=== PATIENT | male | born 1950 | race Caucasian/White ===

== ENCOUNTER → 2016-09-28 | Outpatient (REF) | payer MEDICARE, OTHER ==
[2016-09-28 15:46] LABS: BLOOD UREA NITROGEN 14 MG/DL (7-18); CREATININE FOR GFR 0.84 MG/DL (0.70-1.30); GLOMERULAR FILTRATION RATE > 60.0 (>49)
== END ==
LOC: M LABDRAW1 14:05
PROVIDERS: ATTEND Internal Medicine Pulmonary Disease
DX: R91.8 Other nonspecific abnormal finding of lung field (principal)

== ENCOUNTER → 2016-10-17 | Outpatient (REF) | payer MEDICARE, OTHER ==
[2016-10-17 13:25] LABS: BLOOD UREA NITROGEN 19 MG/DL (7-18); CREATININE FOR GFR 0.97 MG/DL (0.70-1.30); GLOMERULAR FILTRATION RATE > 60.0 (>49)
== END ==
LOC: M LABDRAW1 13:01
PROVIDERS: ATTEND Orthopaedic Surgery
DX: M51.36 Other intervertebral disc degeneration, lumbar region (principal)

== ENCOUNTER → 2016-10-30 | Outpatient (REF) | payer MEDICARE, OTHER ==
[2016-10-30 19:05] LABS: BASO % 0.5 % (0.0-1.0); EOS # 0.4 K/mm3 (0.0-0.50); EOS % 3.8 % (0.0-3.0); LARGE UNSTAINED CELL # 0.2 K/mm3 (0.0-0.4); LARGE UNSTAINED CELL % 1.7 % (0.0-4.0); LYMPH # 2.7 K/mm3 (1.5-4.5); LYMPH % 26.7 % (24.0-44.0); MEAN CORPUSCULAR HEMOGLOBIN 33.7 pg (27.0-33.0); MEAN CORPUSCULAR HGB CONC 33.7 g/dl (32.0-36.5); MEAN CORPUSCULAR VOLUME 100.2 fl (80.0-96.0); MONO # 0.5 K/mm3 (0.0-0.8); MONO % 5.6 % (0.0-5.0); NEUTROPHILS # 5.9 K/mm3 (1.8-7.7); NEUTROPHILS % 61.7 % (36.0-66.0); PLATELET COUNT, AUTOMATED 379 k/mm3 (150-450); RED CELL DISTRIBUTION WIDTH 12.5 % (11.5-14.5); WHITE BLOOD COUNT 9.5 K/mm3 (4.0-10.0)
[2016-10-30 19:49] LABS: ERYTHROCYTE SEDIMENTATION RATE 16 mm/hr (0-20)
== END ==
LOC: M LABDRAW1 17:50
PROVIDERS: ATTEND Orthopaedic Surgery
DX: M51.26 Other intervertebral disc displacement, lumbar region (principal)

== ENCOUNTER → 2016-11-16 | Outpatient (CLI) | payer MEDICARE, BC, OTHER ==
--- NOTE | 2016-11-16 11:03 | REP ---
CT of the right hip: Axial images are acquired with helical scanning in the reformatted sagittal and coronal projections. Study is correlated with the MRI dated 10/25/2016. There are small calcifications at the insertions side of the gluteus medius and gluteus minimus tendon to the greater trochanter. This could represent a small avulsion. There are no lytic, blastic or destructive skeletal changes. No mass. Mineralization is normal. No fracture is identified. The femoral acetabular joint is unremarkable. Impression: Tiny calcifications at the insertion of the gluteus medius evidence minimus tendons some to the greater trochanter, possibly small a avulsion. Signed by Claudio Kasper MD 11/16/2016 10:54 A
--- NOTE | 2016-11-16 15:13 | REP ---
WHOLE BODY RADIONUCLIDE BONE SCAN: HISTORY: Lumbar disc displacement. The patient reports right hip pain progressively worsening TECHNIQUE: 20.1 mCi technetium 99m MDP is injected and standard whole body bone scan imaging is acquired. SCINTIGRAPHIC FINDINGS: There is uptake in bilateral kidneys and in the urinary bladder. There is a large photopenic area associated with defect in the superolateral aspect of the left kidney consistent with a left renal cyst. This is visualized on recent CT study of the chest from October 04, 2016. There is a vague soft tissue uptake in the right chest. This does not correlate with the recent chest CT since there was no evidence of infiltrate. There is osteoarthritic facet uptake at the L5-S1 bilaterally and on the left side of the lower cervical spine. There are arthritic uptake changes in the acromioclavicular joints bilaterally and in the medial compartment of each knee as well as in the right midfoot. There is a focus of increased uptake at the greater trochanter of the right proximal femur consistent with calcific tendonitis or bursitis. No other abnormal skeletal uptake is seen. IMPRESSION: 1. Focal uptake at the greater trochanter on the right consistent with tendonitis or bursitis. 2. Arthritic uptake in multiple sites. 3. Large photopenic area left kidney consistent with a cyst seen on recent CT. 4. Asymmetric soft tissue uptake in the right lung of uncertain significance. Correlation with chest x-ray suggested. Signed by Segundo Max MD 11/16/2016 05:01 P
== END ==
LOC: M RAD 09:46
PROVIDERS: ATTEND Orthopaedic Surgery
DX: R93.7 Abnormal findings on diagnostic imaging of other parts of musculoskeletal system (principal); R93.422 Abnormal radiologic findings on diagnostic imaging of left kidney; R91.8 Other nonspecific abnormal finding of lung field; M16.11 Unilateral primary osteoarthritis, right hip; M51.26 Other intervertebral disc displacement, lumbar region; Z85.828 Personal history of other malignant neoplasm of skin
CPT/HCPCS: 73700; 78306; A9503

== ENCOUNTER → 2020-02-03 | Outpatient (CLI) | payer MEDICARE, BC ==
--- NOTE | 2020-02-04 06:50 | REP ---
REASON: Assess for abdominal aortic aneurysm. Multiple ultrasonographic images of the abdominal aort were obtained from the level of the celiac axis to the aortoiliac bifurcation in both longitudinal and transverse scan planes. The maximal AP dimension of the abdominal aorta, as measured in the longitudinal scan plane, is 2.8 cm. There is no aneurysmal dilatation. There is no abnormal common iliac arteria ectasia. IMPRESSION: The examination is within normal limits.
== END ==
LOC: M PLAIMG 08:31
PROVIDERS: ATTEND Family Medicine
DX: Z72.0 Tobacco use (principal)

== ENCOUNTER → 2020-02-25 | Outpatient (CLI) | payer MEDICARE, BC, OTHER | LOC: M RAD 11:00 | PROVIDERS: ATTEND Family Medicine | DX: R91.1 Solitary pulmonary nodule (principal); J91.8 Pleural effusion in other conditions classified elsewhere; F17.210 Nicotine dependence, cigarettes, uncomplicated ==

== ENCOUNTER → 2021-07-18 | Outpatient (CLI) | payer MEDICARE, BC, OTHER ==
--- NOTE | 2021-07-18 12:20 | REP ---
INDICATION: COUGH,WHEEZING, TABACCO USE COMPARISON: 05/25/2005 TECHNIQUE: PA and lateral. FINDINGS: Cardiomegaly and evidence for prior sternotomy and CABG. Lung pond demonstrate increased interstitial and pulmonary vascular markings and possible small pleural reactions.. No discrete focal consolidation. No pneumothorax. Skeletal structures intact. IMPRESSION: 1. Differential diagnosis includes chronic changes as well as pulmonary vascular congestion/interstitial edema. Correlation is required. <Electronically signed by Grant Anne > 07/18/21 [id number]
== END ==
LOC: M WUC 12:00
PROVIDERS: ATTEND Family Medicine
DX: R05.1 Acute cough (principal); R06.2 Wheezing; Z72.0 Tobacco use; I51.7 Cardiomegaly; J84.9 Interstitial pulmonary disease, unspecified

== ENCOUNTER → 2022-02-15 | Outpatient (CLI) | payer MEDICARE, BC, OTHER | LOC: M WUC 15:16 | PROVIDERS: ATTEND Family Medicine | DX: M25.552 Pain in left hip (principal); M54.42 Lumbago with sciatica, left side; M25.78 Osteophyte, vertebrae; M51.36 Other intervertebral disc degeneration, lumbar region ==

== ENCOUNTER 2022-02-25 00:44 | Inpatient (IN) | payer MEDICARE, BC, OTHER ==
[2022-02-25] VITALS (19 sets, daily range): BP systolic 113–158; BP diastolic 51–118; O2SAT 96
[~2022-02-25] VITALS: Ht 167.6 cm; Wt 94.9 kg
[2022-02-25 01:44] LABS: HEMATOCRIT 39.9 % (42.0-52.0); HEMOGLOBIN 12.6 g/dl (13.5-17.5); MEAN CORPUSCULAR HEMOGLOBIN 30.3 pg (27.0-33.0); MEAN CORPUSCULAR HGB CONC 31.6 g/dl (32.0-36.5); MEAN CORPUSCULAR VOLUME 95.9 fl (80.0-96.0); PLATELET COUNT, AUTOMATED 341 10^3/uL (150-450); RED BLOOD COUNT 4.16 10^6/uL (4.30-6.10); WHITE BLOOD COUNT 16.2 10^3/uL (4.0-10.0)
[2022-02-25] MEDS ORDERED: ISOVUE-370 76% 100ML VIAL As Ordered ONE (01:51)
[2022-02-25 01:55] LABS: INR 1.06; PROTHROMBIN TIME 14.2 SECONDS (12.7-14.5)
[2022-02-25 01:56] LABS: PARTIAL THROMBOPLASTIN TIME 29.5 SECONDS (25.9-37.0)
[2022-02-25] MEDS ORDERED: VALS1TAB68 PO (02:44)
[2022-02-25] MEDS ORDERED: METO1TAB7 PO (02:44)
[2022-02-25] MEDS ORDERED: LIPI80TA PO (02:44)
[2022-02-25] MEDS ORDERED: NITR4TASL SL (02:45)
[2022-02-25] MEDS ORDERED: ASPI81CH33 PO (02:46)
[2022-02-25] MEDS ORDERED: OMEP40CA4 PO (02:46)
[2022-02-25] MEDS ORDERED: K-TA10TA2 PO (02:47)
[2022-02-25] MEDS ORDERED: ZETI10TA16 PO (02:47)
[2022-02-25] MEDS ORDERED: MAGN64TASA PO (02:48)
[2022-02-25] MEDS ORDERED: ISOS1TAB36 PO (02:50)
[2022-02-25] MEDS ORDERED: HEPARIN DRIP 25,000 UNITS in IV 1 EA IV SCH (04:00)
[2022-02-25] MEDS ORDERED: HEPARIN SOD (PORCINE) 5000UNITS/ML 1ML VIAL/SYRINGE IV PRN ×2 (04:00→06:10)
[2022-02-25] MEDS ORDERED: ALBUTEROL 90 MCG/ACT 8GM HFA INHALER INH PRN (05:05)
[2022-02-25] MEDS ORDERED: NS 1,000 ML IV SCH (05:05)
[2022-02-25] MEDS ORDERED: ZOLO100T PO (05:19)
[2022-02-25] MEDS ORDERED: PRED25TA PO (05:19)
[2022-02-25] MEDS ORDERED: B-12100010 PO (05:19)
[2022-02-25] MEDS ORDERED: FURO40TA2 PO (05:19)
[2022-02-25] MEDS ORDERED: TREL1AER PO (05:19)
[2022-02-25] MEDS ORDERED: ALB2.5NEB INH (05:19)
[2022-02-25] MEDS ORDERED: HOME MED LIST COMPLETE! XX SCH (05:20)
[2022-02-25 06:09] LABS: ALBUMIN 2.7 GM/DL (3.2-5.2); BILIRUBIN,TOTAL 0.5 MG/DL (0.2-1.0); CALCIUM LEVEL 7.4 MG/DL (8.8-10.2); CREATININE FOR GFR 1.34 MG/DL (0.70-1.30); GLOMERULAR FILTRATION RATE 55.6 (>42); MAGNESIUM LEVEL 1.2 MG/DL (1.8-2.4); POTASSIUM SERUM 2.8 MEQ/L (3.5-5.1); TOTAL PROTEIN 5.9 GM/DL (6.4-8.2)
[2022-02-25] MEDS ORDERED: propofoL 200 MG/20 ML VIAL As Ordered ONE (06:09)
[2022-02-25] MEDS ORDERED: LIDOCAINE 2% 100MG/5ML SDV (FOR ANES.) As Ordered ONE (06:09)
[2022-02-25] MEDS ORDERED: dexameTHASONE 4 MG/ML 1ML VIAL (J1100 PER 1MG) As Ordered ONE (06:10)
[2022-02-25] MEDS ORDERED: ONDANSETRON 4MG 2ML VIAL As Ordered ONE (06:10)
[2022-02-25] MEDS ORDERED: HEPARIN SOD (PORCINE) 5000UNITS/ML 1ML VIAL/SYRINGE As Ordered ONE ×2 (06:10→08:01)
[2022-02-25] MEDS ORDERED: LIDOCAINE 2% MDV 20ML VIAL As Ordered ONE (06:10)
[2022-02-25] MEDS ORDERED: fentaNYL 100 MCG/2 ML INJECTION As Ordered ONE ×2 (06:10→08:39)
[2022-02-25] MEDS ORDERED: BUPIVACAINE HCL 0.5% 30ML VIAL As Ordered ONE (06:11)
[2022-02-25] MEDS ORDERED: MAGNESIUM SULFATE IN WATER 2 GM in IV 1 EA IV STA ×4 (06:18→13:33)
[2022-02-25] MEDS: KCL 10MEQ/100ML SWI (KRUN) 10 MEQ in IV 1 EA IV SCH ×3 (06:30→14:50)
[2022-02-25] MEDS ORDERED: ETOMIDATE INJ 20MG/10ML VIAL As Ordered ONE (06:44)
[2022-02-25] MEDS ORDERED: ROCURONIUM BROMIDE 50 MG/5 ML VIAL As Ordered ONE ×2 (06:44→08:24)
[2022-02-25] MEDS ORDERED: ISOVUE-300 61% 50ML VIAL As Ordered ONE (06:54)
[2022-02-25] MEDS ORDERED: VASOPRESSIN INJ 20 UNITS/ML VIAL As Ordered ONE (07:30)
[2022-02-25] MEDS ORDERED: ceFAZolin 1GM VIAL (J0690 PER 500MG) As Ordered ONE ×2 (07:49→11:38)
[2022-02-25] MEDS ORDERED: PHENYLEPHRINE 10MG/ML 1ML VIAL (J2370 PER 1) As Ordered ONE (08:12)
[2022-02-25] MEDS ORDERED: NICOTINE 21MG/24HR 1 EA TRANSDERMAL TD SCH (09:00)
[2022-02-25] MEDS ORDERED: THROMBIN SOLN 20,000 UNITS KIT As Ordered ONE (10:51)
[2022-02-25] MEDS ORDERED: SUGAMMADEX SODIUM 500 MG/5 ML VIAL (BRIDION) As Ordered ONE (11:16)
[2022-02-25] MEDS ORDERED: ACETAMINOPHEN 1000MG 100ML IV BTL (OFIRMEV) (J0131 PER 10MG) As Ordered ONE (11:16)
[2022-02-25] MEDS ORDERED: MORPHINE 2 MG/ML 1ML VIAL IV PRN ×2 (12:10→13:30)
[2022-02-25 12:41] LABS: HEMATOCRIT 33.8 % (42.0-52.0); MEAN CORPUSCULAR HEMOGLOBIN 30.5 pg (27.0-33.0); MEAN CORPUSCULAR HGB CONC 32.5 g/dl (32.0-36.5); MEAN CORPUSCULAR VOLUME 93.6 fl (80.0-96.0); PLATELET COUNT, AUTOMATED 308 10^3/uL (150-450); RED BLOOD COUNT 3.61 10^6/uL (4.30-6.10); WHITE BLOOD COUNT 13.4 10^3/uL (4.0-10.0)
[2022-02-25 12:58] LABS: INR 1.18; PROTHROMBIN TIME 15.5 SECONDS (12.7-14.5)
[2022-02-25 12:59] LABS: CALCIUM LEVEL 6.7 MG/DL (8.8-10.2); CREATININE FOR GFR 1.28 MG/DL (0.70-1.30); GLOMERULAR FILTRATION RATE 58.6 (>42); MAGNESIUM LEVEL 1.3 MG/DL (1.8-2.4); POTASSIUM SERUM 3.4 MEQ/L (3.5-5.1)
[2022-02-25] MEDS ORDERED: ONDANSETRON 4MG 2ML VIAL IV PRN (13:30)
[2022-02-25] MEDS ORDERED: LR 1,000 ML IV SCH (13:30)
[2022-02-25] MEDS ORDERED: fentaNYL 100 MCG/2 ML INJECTION IV PRN (13:30)
[2022-02-25] MEDS ORDERED: oxyCODONE 5MG TAB PO PRN (13:30)
[2022-02-25] MEDS ORDERED: IPRATROPIUM 0.5MG/ALBUTEROL 2.5MG INH SOL UD 3ML (DUONEB) NEB SCH (14:00)
[2022-02-25] MEDS ORDERED: CALCIUM GLUCONATE 1,000 MG in D5W MINI-BAG PLUS 100 ML IV ONE (14:00)
[2022-02-25] MEDS: MAG SULF 1GM/100ML (MAG RUN) 1 GM in IV 1 EA IV SCH ×2 (14:18→15:23)
[2022-02-25] MEDS: methylPREDNISolone 125MG 2ML VIAL IV SCH ×2 (14:19→21:28)
[2022-02-25] MEDS: PANTOPRAZOLE 40MG TAB (PROTONIX) PO SCH (14:27)
[2022-02-25] MEDS: PERCOCET 5MG/325MG TAB PO PRN (14:29)
[2022-02-25] MEDS: NICOTINE 21MG/24HR 1 EA TRANSDERMAL TD SCH (14:30)
[2022-02-25] MEDS: IPRATROPIUM 0.5MG/ALBUTEROL 2.5MG INH SOL UD 3ML (DUONEB) NEB SCH ×3 (14:46→18:54)
[2022-02-25] MEDS: HEPARIN DRIP 25,000 UNITS in IV 1 EA IV SCH (15:45)
[2022-02-25] MEDS: ceFAZolin SOD 1 GM in D5W MINI-BAG PLUS 50 ML IV SCH (20:00)
[2022-02-25 22:23] LABS: CALCIUM LEVEL 7.4 MG/DL (8.8-10.2); CREATININE FOR GFR 1.37 MG/DL (0.70-1.30); GLOMERULAR FILTRATION RATE 54.2 (>42); MAGNESIUM LEVEL 1.9 MG/DL (1.8-2.4); PHOSPHORUS LEVEL 3.6 MG/DL (2.5-4.9); POTASSIUM SERUM 3.8 MEQ/L (3.5-5.1)
[2022-02-25] MEDS ORDERED: DEXTROSE 50% 50 ML SYRINGE IV PRN (22:55)
[2022-02-25] MEDS ORDERED: GLUCOSE 4GM CHEW TABLET PO PRN (22:55)
[2022-02-25] MEDS ORDERED: GLUCAGON INJ 1MG VIAL SC PRN (22:55)
[2022-02-26] VITALS (31 sets, daily range): BP systolic 87–169; BP diastolic 46–70; O2SAT 94–97
[2022-02-26] MEDS: IPRATROPIUM 0.5MG/ALBUTEROL 2.5MG INH SOL UD 3ML (DUONEB) NEB SCH ×4 (02:31→19:46)
[2022-02-26] MEDS: methylPREDNISolone 125MG 2ML VIAL IV SCH ×4 (02:39→20:12)
[2022-02-26] MEDS: ceFAZolin SOD 1 GM in D5W MINI-BAG PLUS 50 ML IV SCH ×2 (04:40→12:25)
[2022-02-26 07:46] LABS: ALBUMIN 2.7 GM/DL (3.2-5.2); ALT/SGPT 12 U/L (12-78); BILIRUBIN,TOTAL 0.4 MG/DL (0.2-1.0); BLOOD UREA NITROGEN 14 MG/DL (7-18); CALCIUM LEVEL 7.1 MG/DL (8.8-10.2); CARBON DIOXIDE LEVEL 24 MEQ/L (21-32); CHLORIDE LEVEL 105 MEQ/L (98-107); CREATININE FOR GFR 1.16 MG/DL (0.70-1.30); GLOMERULAR FILTRATION RATE > 60.0 (>42); GLUCOSE, FASTING 194 MG/DL (70-100); MAGNESIUM LEVEL 1.9 MG/DL (1.8-2.4); POTASSIUM SERUM 3.7 MEQ/L (3.5-5.1); SODIUM LEVEL 138 MEQ/L (136-145); TOTAL PROTEIN 5.6 GM/DL (6.4-8.2)
[2022-02-26] MEDS: NICOTINE 21MG/24HR 1 EA TRANSDERMAL TD SCH (08:16)
[2022-02-26] MEDS: PANTOPRAZOLE 40MG TAB (PROTONIX) PO SCH (08:16)
[2022-02-26] MEDS: ASPIRIN 81MG ENTERIC TABLET PO SCH (08:16)
[2022-02-26] MEDS: INSULIN LISPRO (NovoLOG) PER UNIT SC SCH ×3 (08:17→18:15)
[2022-02-26 12:11] LABS: HEMATOCRIT 32.2 % (42.0-52.0); MEAN CORPUSCULAR HEMOGLOBIN 29.9 pg (27.0-33.0); MEAN CORPUSCULAR HGB CONC 31.1 g/dl (32.0-36.5); MEAN CORPUSCULAR VOLUME 96.4 fl (80.0-96.0); PLATELET COUNT, AUTOMATED 236 10^3/uL (150-450); RED BLOOD COUNT 3.34 10^6/uL (4.30-6.10); WHITE BLOOD COUNT 15.5 10^3/uL (4.0-10.0)
[2022-02-26] MEDS: HEPARIN DRIP 25,000 UNITS in IV 1 EA IV SCH (12:36)
[2022-02-26] MEDS ORDERED: FUROSEMIDE 20MG/2ML VIAL (J1940) IV ONE ×2 (12:50→18:05)
[2022-02-26] MEDS ORDERED: INSULIN LISPRO (NovoLOG) PER UNIT SC SCH (21:00)
[2022-02-27] VITALS (16 sets, daily range): BP systolic 121–151; BP diastolic 60–71; O2SAT 98–99
[2022-02-27] MEDS: IPRATROPIUM 0.5MG/ALBUTEROL 2.5MG INH SOL UD 3ML (DUONEB) NEB SCH ×3 (02:03→13:05)
[2022-02-27] MEDS: methylPREDNISolone 125MG 2ML VIAL IV SCH ×3 (03:22→15:34)
[2022-02-27 06:42] LABS: BLOOD UREA NITROGEN 21 MG/DL (7-18); CALCIUM LEVEL 7.4 MG/DL (8.8-10.2); CARBON DIOXIDE LEVEL 26 MEQ/L (21-32); CHLORIDE LEVEL 105 MEQ/L (98-107); GLOMERULAR FILTRATION RATE > 60.0 (>42); GLUCOSE, FASTING 177 MG/DL (70-100); MAGNESIUM LEVEL 1.8 MG/DL (1.8-2.4); POTASSIUM SERUM 3.8 MEQ/L (3.5-5.1); SODIUM LEVEL 139 MEQ/L (136-145)
[2022-02-27 07:51] LABS: BASO % 0.1 % (0.0-1.0); HEMATOCRIT 31.6 % (42.0-52.0); HEMOGLOBIN 9.8 g/dl (13.5-17.5); LYMPH # 0.5 10^3/uL (1.5-5.0); LYMPH % 2.6 % (24.0-44.0); MEAN CORPUSCULAR HEMOGLOBIN 30.2 pg (27.0-33.0); MEAN CORPUSCULAR VOLUME 97.2 fl (80.0-96.0); MONO # 0.6 10^3/uL (0.0-0.8); MONO % 3.2 % (2.0-8.0); NEUTROPHILS # 17.2 10^3/uL (1.5-8.5); NEUTROPHILS % 93.4 % (36.0-66.0); PLATELET COUNT, AUTOMATED 235 10^3/uL (150-450); RED BLOOD COUNT 3.25 10^6/uL (4.30-6.10); WHITE BLOOD COUNT 18.4 10^3/uL (4.0-10.0)
[2022-02-27] MEDS ORDERED: MAG SULF 1GM/100ML (MAG RUN) 1 GM in IV 1 EA IV ONE (08:00)
[2022-02-27] MEDS: PANTOPRAZOLE 40MG TAB (PROTONIX) PO SCH (08:21)
[2022-02-27] MEDS: NICOTINE 21MG/24HR 1 EA TRANSDERMAL TD SCH (08:21)
[2022-02-27] MEDS: INSULIN LISPRO (NovoLOG) PER UNIT SC SCH ×3 (08:21→18:07)
[2022-02-27] MEDS: ASPIRIN 81MG ENTERIC TABLET PO SCH (08:21)
[2022-02-27] MEDS: PERCOCET 5MG/325MG TAB PO PRN ×2 (08:31→18:07)
[2022-02-27] MEDS: HEPARIN DRIP 25,000 UNITS in IV 1 EA IV SCH (13:34)
[2022-02-27] MEDS ORDERED: PRED10TA2 PO (17:05)
[2022-02-27] MEDS ORDERED: HEPA1INJ81 IV (17:05)
== END 2022-02-27 18:54 | disposition short-term general hospital (02) | DRG 270 ==
LOC: M ED 00:44 → EDBD 00:44 → M ED INP 06:14 → M ED 06:49 → ENRESERV 09:06 → M ICU 12:58
PROVIDERS: ADMIT Internal Medicine; ATTEND Internal Medicine
PROC: 04CL0ZZ Extirpation of Matter from Left Femoral Artery, Open Approach (ICD-10-PCS; 2022-02-25)
PROC: 04UL0KZ Supplement Left Femoral Artery with Nonautologous Tissue Substitute, Open Approach (ICD-10-PCS; 2022-02-25)
PROC: 047D0DZ Dilation of Left Common Iliac Artery with Intraluminal Device, Open Approach (ICD-10-PCS; 2022-02-25)
PROC: 04CD0ZZ Extirpation of Matter from Left Common Iliac Artery, Open Approach (ICD-10-PCS; principal; 2022-02-25 05:09)
PROC: B246ZZZ Ultrasonography of Right and Left Heart (ICD-10-PCS; 2022-02-26)
DX: I74.5 Embolism and thrombosis of iliac artery (principal); J96.21 Acute and chronic respiratory failure with hypoxia; I21.4 Non-ST elevation (NSTEMI) myocardial infarction; J44.1 Chronic obstructive pulmonary disease with (acute) exacerbation; F17.210 Nicotine dependence, cigarettes, uncomplicated; I25.10 Atherosclerotic heart disease of native coronary artery without angina pectoris; Z95.5 Presence of coronary angioplasty implant and graft; I48.91 Unspecified atrial fibrillation; E78.5 Hyperlipidemia, unspecified; I10 Essential (primary) hypertension; Z20.822 Contact with and (suspected) exposure to COVID-19; Z79.82 Long term (current) use of aspirin; Z79.899 Other long term (current) drug therapy; I77.1 Stricture of artery; G89.29 Other chronic pain; I70.222 Atherosclerosis of native arteries of extremities with rest pain, left leg; E87.6 Hypokalemia; E83.42 Hypomagnesemia; K21.9 Gastro-esophageal reflux disease without esophagitis; Z99.81 Dependence on supplemental oxygen; M47.817 Spondylosis without myelopathy or radiculopathy, lumbosacral region

== ENCOUNTER → 2022-04-09 | Outpatient (CLI) | payer MEDICARE, BC, OTHER ==
[~2022-04-09] MED LIST: ALB2.5NEB INH; ASPI81CH33 PO; B-12100010 PO; FURO40TA2 PO; HEPA1INJ81 IV; ISOS1TAB36 PO; K-TA10TA2 PO; LIPI80TA PO; MAGN64TASA PO; METO1TAB7 PO; NITR4TASL SL; OMEP40CA4 PO; PRED10TA2 PO; PRED25TA PO; TREL1AER PO; VALS1TAB68 PO; ZETI10TA16 PO; ZOLO100T PO
== END ==
LOC: M RAD 10:06
PROVIDERS: ATTEND Family Medicine
DX: R91.8 Other nonspecific abnormal finding of lung field (principal); Z72.0 Tobacco use; J44.1 Chronic obstructive pulmonary disease with (acute) exacerbation

== ENCOUNTER → 2022-05-21 | Outpatient (CLI) | payer MEDICARE, BC, OTHER ==
[2022-05-21 15:58] LABS: HEMOGLOBIN 9.5 g/dl (13.5-17.5); MEAN CORPUSCULAR HEMOGLOBIN 25.3 pg (27.0-33.0); MEAN CORPUSCULAR HGB CONC 29.7 g/dl (32.0-36.5); MEAN CORPUSCULAR VOLUME 85.3 fl (80.0-96.0); PLATELET COUNT, AUTOMATED 384 10^3/uL (150-450); RED BLOOD COUNT 3.75 10^6/uL (4.30-6.10); WHITE BLOOD COUNT 10.5 10^3/uL (4.0-10.0)
[2022-05-21 16:34] LABS: CALCIUM LEVEL 8.5 MG/DL (8.8-10.2); CREATININE FOR GFR 1.54 MG/DL (0.70-1.30); GLOMERULAR FILTRATION RATE 47.4 (>42); MAGNESIUM LEVEL 1.5 MG/DL (1.8-2.4)
== END ==
LOC: M PLALAB 13:25
PROVIDERS: ATTEND Physician Assistant
DX: I50.32 Chronic diastolic (congestive) heart failure (principal); I48.0 Paroxysmal atrial fibrillation

== ENCOUNTER → 2022-05-30 | Outpatient (CLI) | payer MEDICARE, BC, OTHER ==
[2022-05-30 16:30] LABS: CALCIUM LEVEL 8.8 MG/DL (8.8-10.2); CREATININE FOR GFR 1.52 MG/DL (0.70-1.30); GLOMERULAR FILTRATION RATE 48.1 (>42); MAGNESIUM LEVEL 1.7 MG/DL (1.8-2.4)
== END ==
LOC: M PLALAB 14:01
PROVIDERS: ATTEND Physician Assistant
DX: I50.32 Chronic diastolic (congestive) heart failure (principal); I48.0 Paroxysmal atrial fibrillation

== ENCOUNTER → 2022-06-18 | Outpatient (CLI) | payer MEDICARE, BC, OTHER ==
[2022-06-18 13:45] LABS: CALCIUM LEVEL 8.1 MG/DL (8.3-10.6); CREATININE FOR GFR 1.6 MG/DL (0.70-1.30); GLOMERULAR FILTRATION RATE 45.3 (>42); POTASSIUM SERUM 5.9 MMOL/L (3.5-5.1)
== END ==
LOC: M PLALAB 11:34
PROVIDERS: ATTEND Family Medicine
DX: E78.5 Hyperlipidemia, unspecified (principal); I10 Essential (primary) hypertension; I73.9 Peripheral vascular disease, unspecified

== ENCOUNTER → 2022-07-06 | Outpatient (CLI) | payer MEDICARE, BC, OTHER ==
[2022-07-06 16:09] LABS: MAGNESIUM LEVEL 1.2 MG/DL (1.8-2.4)
[2022-07-06 16:10] LABS: BLOOD UREA NITROGEN 17 MG/DL (9-23); CALCIUM LEVEL 8.5 MG/DL (8.3-10.6); CARBON DIOXIDE LEVEL 23 MMOL/L (20-31); CHLORIDE LEVEL 108 MMOL/L (98-107); GLOMERULAR FILTRATION RATE > 60.0 (>42); GLUCOSE, FASTING 101 MG/DL (74-106); POTASSIUM SERUM 3.8 MMOL/L (3.5-5.1); SODIUM LEVEL 138 MMOL/L (136-145)
== END ==
LOC: M PLALAB 13:48
PROVIDERS: ATTEND Physician Assistant
DX: I50.32 Chronic diastolic (congestive) heart failure (principal); I48.0 Paroxysmal atrial fibrillation

== ENCOUNTER → 2022-08-06 | Outpatient (CLI) | payer MEDICARE, BC, OTHER ==
[2022-08-06 15:28] LABS: MAGNESIUM LEVEL 1.2 MG/DL (1.8-2.4)
[2022-08-06 15:30] LABS: BLOOD UREA NITROGEN 19 MG/DL (9-23); CALCIUM LEVEL 7.8 MG/DL (8.3-10.6); CARBON DIOXIDE LEVEL 20 MMOL/L (20-31); CHLORIDE LEVEL 105 MMOL/L (98-107); CREATININE FOR GFR 1.24 MG/DL (0.70-1.30); GLOMERULAR FILTRATION RATE > 60.0 (>42); GLUCOSE, FASTING 85 MG/DL (74-106); SODIUM LEVEL 133 MMOL/L (136-145)
== END ==
LOC: M PLALAB 11:23
PROVIDERS: ATTEND Physician Assistant
DX: I50.32 Chronic diastolic (congestive) heart failure (principal); I48.0 Paroxysmal atrial fibrillation

== ENCOUNTER → 2022-09-17 | Outpatient (CLI) | payer MEDICARE, BC, OTHER ==
[~2022-09-17] MED LIST changes: +ALBU6.7H6 INH; +ELIQ5TAB PO; +IRON65TA2 PO; +MAGN400T35 PO; +NICO1DIS12 TOP; +SENN-145 PO; +SPIR-10 PO; +TORS20TA2 PO
[2022-09-17 16:08] LABS: ALBUMIN 3.3 G/DL (3.2-5.2); CALCIUM LEVEL 8.6 MG/DL (8.3-10.6); CREATININE FOR GFR 1.58 MG/DL (0.70-1.30); GLOMERULAR FILTRATION RATE 45.9 (>42); MAGNESIUM LEVEL 1.6 MG/DL (1.8-2.4); PHOSPHORUS LEVEL 4.9 MG/DL (2.4-5.1); POTASSIUM SERUM 4.6 MMOL/L (3.5-5.1)
[2022-09-17 16:25] LABS: HEMATOCRIT 23.2 % (42.0-52.0); MEAN CORPUSCULAR HEMOGLOBIN 21.6 pg (27.0-33.0); MEAN CORPUSCULAR HGB CONC 27.2 g/dl (32.0-36.5); MEAN CORPUSCULAR VOLUME 79.7 fl (80.0-96.0); PLATELET COUNT, AUTOMATED 259 10^3/uL (150-450); RED BLOOD COUNT 2.91 10^6/uL (4.30-6.10); WHITE BLOOD COUNT 10.4 10^3/uL (4.0-10.0)
[2022-09-17 16:32] LABS: HEMOGLOBIN 6.3 g/dl (13.5-17.5)
== END ==
LOC: M PLALAB 13:09
PROVIDERS: ATTEND Physician Assistant
DX: I50.32 Chronic diastolic (congestive) heart failure (principal); I27.81 Cor pulmonale (chronic); E83.42 Hypomagnesemia

== ENCOUNTER → 2022-10-05 | Outpatient (REF) | payer MEDICARE, BC, OTHER ==
[~2022-10-05] MED LIST changes: +ALBU8.5H INH; +DOXY100T PO; +METO1TAB32 PO; +NICO21PAT TOP; +POTA10CA33 PO; +PRED20TA PO; +SELF1KIT MC; +TORS10TA3 PO
== END ==
LOC: M LAB REF 11:58
PROVIDERS: ATTEND Internal Medicine Nephrology
DX: N18.32 Chronic kidney disease, stage 3b (principal)

== ENCOUNTER → 2023-03-26 | Outpatient (CLI) | payer OTHER, MEDICARE ==
[~2023-03-26] MED LIST changes: -K-TA10TA2 PO; +POTA-165 PO; -POTA10CA33 PO; +POTA10CA60 PO
== END ==
LOC: M RAD 10:43
PROVIDERS: ATTEND Nurse Practitioner Family
DX: M79.604 Pain in right leg (principal)

== ENCOUNTER 2023-04-30 11:25 | Emergency (ER) | payer BC, MEDICARE, OTHER ==
[~2023-04-30] VITALS: Ht 167.6 cm; Wt 77.3 kg
[~2023-04-30 11:25] MED LIST changes: +EZET10TA58 PO; -ZETI10TA16 PO
[2023-04-30 16:19] VITALS: BP 132/72; TEMP 97.6
[2023-04-30] MEDS: methocarbamoL 750 MG TAB PO ONE (17:43)
[2023-04-30 20:09] VITALS: O2SAT 99
[2023-04-30] MEDS: traMADol 50 MG TAB PO ONE (20:09)
[2023-04-30] MEDS ORDERED: TRAM50TA2 PO (20:38)
== END 2023-04-30 20:54 | disposition home or self-care (01) ==
LOC: M ED 11:25
DX: M54.30 Sciatica, unspecified side (principal); M51.27 Other intervertebral disc displacement, lumbosacral region; I10 Essential (primary) hypertension; E78.5 Hyperlipidemia, unspecified; I25.2 Old myocardial infarction; J44.9 Chronic obstructive pulmonary disease, unspecified; Z99.81 Dependence on supplemental oxygen; Z86.718 Personal history of other venous thrombosis and embolism; F17.200 Nicotine dependence, unspecified, uncomplicated; Z79.51 Long term (current) use of inhaled steroids; Z79.899 Other long term (current) drug therapy; Z79.52 Long term (current) use of systemic steroids

== ENCOUNTER → 2023-05-27 | Outpatient (CLI) | payer MEDICARE, OTHER, BC ==
[~2023-05-27] MED LIST changes: +TRAM50TA2 PO
== END ==
LOC: M RAD 07:20
PROVIDERS: ATTEND Orthopaedic Surgery
DX: M51.16 Intervertebral disc disorders with radiculopathy, lumbar region (principal)

== ENCOUNTER 2023-05-29 14:31 | Emergency (ER) | payer MEDICARE, BC, OTHER ==
[~2023-05-29] VITALS: Ht 167.6 cm; Wt 81.8 kg
[~2023-05-29 14:31] MED LIST changes: -CELE1CAP99 PO; -LYRI75CA PO; -TIZA2CAP PO; -TRAZ-252 PO
[2023-05-29] MEDS ORDERED: TIZA2CAP PO (16:19)
[2023-05-29] MEDS ORDERED: CELE1CAP99 PO (16:19)
[2023-05-29] MEDS ORDERED: TRAZ-252 PO (16:19)
[2023-05-29] MEDS ORDERED: PREGABALIN 75 MG CAP(LYRICA) PO ONE (17:15)
[2023-05-29] MEDS ORDERED: dexAMETHasone 20MG/5ML VIAL IV ONE (17:15)
[2023-05-29 17:59] LABS: BASO % 0.2 % (0.0-1.0); EOS # 0.1 10^3/uL (0.0-0.5); EOS % 0.9 % (0.0-3.0); HEMATOCRIT 49.3 % (42.0-52.0); HEMOGLOBIN 16.2 g/dl (13.5-17.5); LYMPH # 0.9 10^3/uL (1.5-5.0); LYMPH % 7.8 % (24.0-44.0); MEAN CORPUSCULAR HEMOGLOBIN 32.2 pg (27.0-33.0); MEAN CORPUSCULAR HGB CONC 32.9 g/dl (32.0-36.5); MONO # 0.6 10^3/uL (0.0-0.8); MONO % 5.1 % (2.0-8.0); NEUTROPHILS # 10.3 10^3/uL (1.5-8.5); NEUTROPHILS % 85.7 % (36.0-66.0); PLATELET COUNT, AUTOMATED 217 10^3/uL (150-450); RED BLOOD COUNT 5.03 10^6/uL (4.30-6.10); WHITE BLOOD COUNT 12.1 10^3/uL (4.0-10.0)
[2023-05-29 18:11] LABS: ERYTHROCYTE SEDIMENTATION RATE 31 mm/hr (0-20)
[2023-05-29 18:25] LABS: C REACTIVE PROTEIN QUANTITATIV 4.7 MG/DL (<1.0)
[2023-05-29 18:26] LABS: CALCIUM LEVEL 8.9 MG/DL (8.3-10.6); CREATININE FOR GFR 1.37 MG/DL (0.70-1.30); GLOMERULAR FILTRATION RATE 54.1 (>42); POTASSIUM SERUM 3.5 MMOL/L (3.5-5.1)
[2023-05-29] MEDS ORDERED: MORPHINE 4 MG/ML 1ML VIAL IV ONE (20:05)
[2023-05-29] MEDS ORDERED: LYRI75CA PO (21:13)
[2023-05-29 21:51] VITALS: BP 135/73; TEMP 97.9; O2SAT 90
== END 2023-05-29 21:54 | disposition home or self-care (01) ==
LOC: M ED 14:31
DX: M54.50 Low back pain, unspecified (principal); R10.31 Right lower quadrant pain; M25.551 Pain in right hip; M25.561 Pain in right knee; M25.461 Effusion, right knee; I10 Essential (primary) hypertension; I25.2 Old myocardial infarction; J44.9 Chronic obstructive pulmonary disease, unspecified; K21.9 Gastro-esophageal reflux disease without esophagitis; Z79.52 Long term (current) use of systemic steroids; Z79.83 Long term (current) use of bisphosphonates; Z79.899 Other long term (current) drug therapy
CPT/HCPCS: 73502; 73560; 80048; 83605; 85025; 85652; 86140; 87040; 93041; 94760; 96374; 96375; 99284; J1100

== ENCOUNTER → 2023-05-29 | Outpatient (CLI) | payer MEDICARE, OTHER, BC ==
[~2023-05-29] MED LIST changes: +CELE1CAP99 PO; +LYRI75CA PO; +TIZA2CAP PO; +TRAZ-252 PO
== END ==
LOC: M SOG 11:55
PROVIDERS: ATTEND Orthopaedic Surgery
DX: M25.551 Pain in right hip (principal); M25.561 Pain in right knee; M25.461 Effusion, right knee